=== PATIENT | female | born 1985 | race Caucasian/White ===

== ENCOUNTER 2024-10-28 12:25 | Observation (INO) ==
--- NOTE | 2024-10-28 13:00 | Emergency Department Note ---
Impression & Plan Acute cholecystitis due to biliary calculus, Abdominal pain, Vomiting ED Provider Note NAME: KHARI STILES AGE: 39 SEX: F : 1985 ARRIVES VIA: Walk-In INFORMANT: Patient ED PROVIDER(S): Adam Christopher DO CHIEF COMPLAINT: Abdominal pain HPI: Patient is a 39-year-old female who presents to the ER with a past medical history of migraine for periumbilical abdominal pain which radiates through to the back. This started late last night while she was laying in bed. Associated with nausea but no vomiting. Denies any dysuria, urgency, or frequency. Unsure of her last menstrual period as she notes her tubes have been tied and removed. Denies any headache or change in vision. No chest pain or shortness of breath. No other exacerbating or remitting factors. No other abdominal surgeries. Denies any issues with her kidneys or IV contrast. ADDITIONAL HISTORY OBTAINED: Per HPI Chronic Medical/Social Conditions Affecting Care: Per HPI PAST MEDICAL HISTORY:See Below PAST SURGICAL HISTORY:See Below FAMILY HISTORY:See Below SOCIAL HISTORY:See Below HOME MEDICATIONS:See Below ALLERGIES:See Below VITALS:See Below PHYSICAL EXAMINATION: GENERAL: Sitting up in bed, alert, moderate distress holding her abdomen EYE EXAM: normal conjunctiva. OROPHARYNX: no exudate, no erythema, lips, buccal mucosa, and tongue normal and mucous membranes are moist NECK: supple, no nuchal rigidity, no adenopathy, non-tender LUNGS: Clear to auscultation. Normal chest wall mechanics HEART: no murmurs, S1 normal and S2 normal ABDOMEN: abdomen soft, tender palpation periumbilically and in the epigastric region, normo-active bowel sounds, no masses, no rebound or guarding. UPPER EXTREMITIES: upper extremities are grossly normal. LOWER EXTREMITIES: No pitting edema. NEURO EXAM: Normal sensorium, cranial nerves II-XII grossly intact, normal speech, no gross weakness of arms, no gross weakness of legs. MEDICAL DECISION MAKING: Patient is a 39-year-old female who presents to the ER for epigastric right upper quadrant pain. IV was established and blood work was obtained. Labs show no significant leukocytosis or anemia. BMP along with LFTs bilirubin and lipase is unremarkable. UA was clean without white cells but slightly contaminated. was negative. CT abdomen pelvis showed acute cholecystitis. Patient was given IV Zosyn and IV morphine and Zofran and fluids. She was updated at bedside. Discussed with general surgery and patient was taken to the OR for acute cholecystitis. Consults/Care Managements Discussions: Per MDM Triage Nursing notes reviewed. Limited review of prior medical records performed Vital Signs: reviewed and remarkable for no significant abnormalities Differential diagnosis: Differential diagnoses includes but is not limited to gastritis, peptic ulcer disease, GERD, gallbladder disease, pancreatitis, small bowel obstruction, appendicitis, diverticulitis, hernia, urinary tract infection, torsion, /ectopic (if female), perforation, trauma, infectious. ER treatment provided: See below Diagnostics interpreted by me include EKG and cardiac monitoring as listed below: -Cardiac Monitoring: An order was placed for continuous cardiac monitoring. The monitor shows a rate of 80 with sinus rhythm. -ECG: none -Laboratory studies:Interpreted by me as stated above in MDM and shown below. 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) 2018 ASCUS 2020 Colpo LGSIL 2020 cotest neg/neg 2023 cotest neg/neg Per ASCCP guidelines repeat cotest in 3 years (2026) Sinus pain Medical History (Updated 10/28/24 @ 17:31 by Adam Christopher DO) Migraine Sterilization Menorrhagia with regular cycle resolved s/p endometrial ablation Surgical History History of bilateral tubal ligation (01/2020) History of endometrial ablation (01/2020) Status post wisdom tooth extraction H/O LEEP Family History Father Family history of diabetes mellitus Grandmother (Paternal) Family history of diabetes mellitus Other Hypertension Kidney disease No family history of adverse response to anesthesia Denies family history of Ovarian cancer Breast cancer Colorectal cancer Uterine cancer Social History Smoking Status: Former smoker Second Hand Exposure: No; Do You Dip or Chew Tobacco: No; Hx Alcohol Use: Yes Alcohol type: wine Alcohol type Comment: social Hx Substance Use: No Preferred Language: Macedonian Communication Ability: Effective Actuarial Technician Required: No Beliefs That Will Affect Care: None marital status: Current Living Situation: Alone and Family Current Living Situation Comment: with 3 children 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 Feels Safe at Home: Yes Safety Concerns: Feels Safe At This Time Diet Comment: reg diet Physical Activity Frequency: 3-4 Times per Week Physical Activity Frequency Comment: eliptical at home Assistive Devices: None Allergies Allergies Allergy/AdvReac Type Severity Reaction Status Date / Time No Known Allergies Allergy Verified 03/08/24 08:09 Home Meds Home Medications Medication Instructions Recorded Confirmed fluticasone propionate 50 1 spray intranasal DAILY 12/30/23 03/08/24 mcg/actuation nasal spray,suspension (Flonase Allergy Relief) sodium chloride 0.65 % nasal spray 1 spray intranasal BID PRN 12/30/23 03/08/24 aerosol (Saline Nasal Mist) Results & Data (ED) Vital Signs Vital Signs - 24 hr 10/28/24 12:38 10/28/24 12:55 10/28/24 13:06 Temperature 36.9 C Temperature Source Temporal Artery Scan Pulse Rate 96 H 89 Pulse Rate [Apical] 98 H Pulse Rhythm Regular Pulse Rhythm [Apical] Pulse Strength [Apical] Normal Respiratory Rate 20 18 Respiratory Effort / Characteristics Non-Labored Non-Labored Spontaneous Respiratory Depth Normal Normal Respiratory Pattern Regular Blood Pressure 187/139 H Blood Pressure [Left Arm] 178/122 H Blood Pressure Mean 155 Blood Pressure Mean [Left Arm] 140 Pulse Oximetry 92 100 100 Oxygen Delivery Method Room Air Room Air Room Air Sepsis Recent Fever Within 48 Hours No Sepsis New/Unexplained Change in Mental Status No Sepsis Action Taken by Nursing No Action Required 10/28/24 13:14 10/28/24 14:24 10/28/24 14:48 Temperature 36.9 C Temperature Source Oral Pulse Rate 92 H Pulse Rate [Apical] 89 93 H Pulse Rhythm Pulse Rhythm [Apical] Regular Regular Pulse Strength [Apical] Normal Normal Respiratory Rate 19 17 Respiratory Effort / Characteristics Non-Labored Spontaneous Non-Labored Spontaneous Respiratory Depth Normal Normal Respiratory Pattern Regular Regular Blood Pressure Blood Pressure [Left Arm] 156/98 H 161/103 H Blood Pressure Mean Blood Pressure Mean [Left Arm] 117 122 Pulse Oximetry 99 99 Oxygen Delivery Method Room Air Room Air Sepsis Recent Fever Within 48 Hours Sepsis New/Unexplained Change in Mental Status Sepsis Action Taken by Nursing Laboratory Data 10/28/24 12:50 10/28/24 12:50 Lab Results 10/28/24 10/28/24 Range/Units 12:50 14:29 WBC 9.47 (4.8-10.8) K/ul RBC 4.71 (4.20-5.40) M/uL Hgb 15.2 (12.0-16.0) g/dl Hct 41.6 (37.0-47.0) % MCV 88.3 (80.0-100.0) fL MCH 32.3 (25.0-34.0) pg MCHC 36.5 H (32.0-36.0) g/dL RDW Std Deviation 35.9 L (36.4-46.3) fL RDW Coeff of Blaise 11.1 L (11.5-14.5) % Plt Count 240 (130-400) K/uL MPV 9.3 L (9.4-12.4) fL Immature Gran % (Auto) 0.4 % Neut % (Auto) 74.0 % Lymph % (Auto) 17.7 % [place] % (Auto) 6.5 % Eos % (Auto) 1.1 % Baso % (Auto) 0.3 % Neut # (Auto) 7.00 H (1.40-6.50) K/uL Lymph # (Auto) 1.68 (1.20-3.40) K/uL [place] # (Auto) 0.62 H (0.11-0.59) K/uL Eos # (Auto) 0.10 (0.00-0.50) K/uL Baso # (Auto) 0.03 (0.00-0.20) K/uL Immature Gran # (Auto) 0.04 (0.01-0.20) K/uL Sodium 136 (136-145) mmol/L Potassium 3.8 (3.5-5.1) mmol/L Chloride 104 (98-107) mmol/L Carbon Dioxide 22 (21-32) mmol/L Anion Gap 10 (3-11) BUN 14 (6-23) mg/dl Creatinine 0.84 (0.6-1.2) mg/dl Est Cr Clr Drug Dosing 93.0 ml/min eGFR 90.03 BUN/Creatinine Ratio 16.7 (10-20) Glucose 107 H (70-99(Fasting)) mg/dl Calcium 9.7 (8.6-10.3) mg/dl Total Bilirubin 0.5 (0.2-1.0) mg/dl AST 18 (13-39) U/L ALT 20 (7-52) U/L Alkaline Phosphatase 64 (34-104) U/L Total Protein 7.7 (6.0-8.3) gm/dl Albumin 4.8 (3.4-5.0) gm/dl Globulin 2.9 (2.5-4.0) gm/dl Albumin/Globulin Ratio 1.7 (0.9-2) Lipase 24 (11-82) U/L POC Ur Test NEG (NEG) Administered Medications Discontinued Medications Sodium Chloride (Nss) 1,000 mls @ 999 mls/hr IV .Q1H1M ONE Stop: 10/28/24 13:57 Last Infusion: 10/28/24 14:55 Dose: Infused Documented By: Admin: 10/28/24 13:02 Dose: 999 mls/hr Documented By: ISAURA Piperacillin Sod/Tazobactam Sod (Zosyn) 4.5 gm in 100 mls @ 200 mls/hr IV NOW ONE; Protocol Stop: 10/28/24 14:56 Last Infusion: 10/28/24 15:33 Dose: Infused Documented By: Admin: 10/28/24 14:45 Dose: 200 mls/hr Documented By: ISAURA Ioversol (Optiray 320 100ml) 94 ml IV ONCE ONE Stop: 10/28/24 13:28 Last Admin: 10/28/24 13:28 Dose: 94 ml Documented By: NATE Ketorolac Tromethamine (Ketorolac Tromethamine 15 Mg/Ml Vial) 10 mg IV NOW ONE Stop: 10/28/24 12:58 Last Admin: 10/28/24 13:02 Dose: 10 mg Documented By: ISAURA Morphine Sulfate (Morphine Sulfate 10 Mg/Ml Carp/Vial) 6 mg IV NOW STA Stop: 10/28/24 12:58 Last Admin: 10/28/24 13:05 Dose: 6 mg Documented By: ISAURA Ondansetron HCl (Ondansetron Inj 2 Mg/Ml 2 Ml Vial) 4 mg IV NOW STA Stop: 10/28/24 12:58 Last Admin: 10/28/24 13:03 Dose: 4 mg Documented By: ISAURA Imaging Data Radiologist's Impression: Abdomen/Pelvis CT 10/28/24 12:57 CT OF THE ABDOMEN AND PELVIS WITH CONTRAST CLINICAL HISTORY: Periumbilical abdominal pain. COMPARISON STUDY: Pelvic ultrasound October 25, 2019. TECHNIQUE: Following IV administration of 94 mL of Optiray, axial images of the abdomen and pelvis were obtained from the lung bases to the proximal femurs. Images were reviewed in the axial, sagittal, and coronal planes. IV contrast was administered without complication. Automated exposure control was utilized for the study. A dose lowering technique was utilized adhering to the principles of ALARA. CT DOSE: 1224.53 mGy.cm FINDINGS: Lung bases are unremarkable. No pneumatosis, free air or portal venous gas is present. There is no biliary ductal dilatation. There are no hepatic lesions. The gallbladder is mildly distended. Multiple gallstones within the gallbladder are present. There is mild gallbladder wall thickening. There is a stone within the gallbladder neck or cystic duct which measures 3 mm. Spleen, adrenal glands and kidneys are unremarkable. There is excreted contrast within the collecting systems. There is no hydronephrosis. The appendix is normal. There is no ascites. No lymphadenopathy is present. The ovaries are not enlarged. Major vasculature is patent. IMPRESSION: 1. Cholelithiasis with mild gallbladder distention and gallbladder wall thickening. Small stone within the gallbladder neck versus cystic duct. Acute cholecystitis cannot be excluded. Right upper quadrant ultrasound is recommended. 2. Normal appendix. No bowel obstruction. No bowel wall thickening. ACT 112: Negative or not required by law. Electronically signed by: Doug Acevedo M.D. 10/28/2024 2:02 PM Discharge Plan Visit Data Chief Complaint: Abdominal Pain Stated Complaint: HARMS AND HANDS NUMB, ABD PAIN ED Provider: Adam Christopher Discharge Problem: Acute cholecystitis due to biliary calculus, Abdominal pain, Vomiting Patient Disposition: Admitted As Inpatient Discharge Instructions Interventions: ED Discharge Assessment Last Done: 10/28/24 16:17 Discharge Problem: Abdominal pain Qualifiers: Abdominal location: unspecified location Qualified Code(s): R10.9 - Unspecified abdominal pain Vomiting Qualifiers: Vomiting type: unspecified Nausea presence: unspecified Qualified Code(s): R 11.10 - Vomiting, unspecified
[2024-10-28] MEDS: SODIUM CHLORIDE 0.9% 1,000 ML IV ONE (13:02)
[2024-10-28] MEDS: KETOROLAC TROMETHAMINE 15 MG/ML VIAL IV ONE (13:02)
[2024-10-28] MEDS: ONDANSETRON INJ 2 MG/ML 2 ML VIAL IV STA (13:03)
[2024-10-28] MEDS: MoRPHine SULFATE 10 MG/ML CARP/VIAL IV STA (13:05)
[2024-10-28 13:22] LABS: Basophils # (auto) 0.03 K/uL (0.00-0.20); Basophils % (auto) 0.3 %; Eosinophils % (auto) 1.1 %; Hematocrit (blood only) 41.6 % (37.0-47.0); Hemoglobin 15.2 g/dl (12.0-16.0); Immature Granulocytes # (auto) 0.04 K/uL (0.01-0.20); Immature Granulocytes % (auto) 0.4 %; Lymphocytes # (auto) 1.68 K/uL (1.20-3.40); Lymphocytes % (auto) 17.7 %; Mean Corpuscular Hemoglobin 32.3 pg (25.0-34.0); Mean Corpuscular Hgb Conc 36.5 g/dL (32.0-36.0); Mean Corpuscular Volume 88.3 fL (80.0-100.0); Mean Platelet Volume 9.3 fL (9.4-12.4); Monocytes # (auto) 0.62 K/uL (0.11-0.59); Monocytes % (auto) 6.5 %; Platelet Count 240 K/uL (130-400); RDW Coefficient of Variation 11.1 % (11.5-14.5); RDW Standard Deviation 35.9 fL (36.4-46.3); Red Blood Count 4.71 M/uL (4.20-5.40); White Blood Count 9.47 K/ul (4.8-10.8)
[2024-10-28] MEDS: OPTIRAY 320 100ml IV ONE (13:28)
[2024-10-28 13:34] LABS: Albumin Globulin Ratio 1.7 (0.9-2); Albumin Level 4.8 gm/dl (3.4-5.0); BUN Creatinine Ratio 16.7 (10-20); Bilirubin,Total 0.5 mg/dl (0.2-1.0); Calcium 9.7 mg/dl (8.6-10.3); Globulin 2.9 gm/dl (2.5-4.0); Potassium 3.8 mmol/L (3.5-5.1); Total Protein 7.7 gm/dl (6.0-8.3)
--- NOTE | 2024-10-28 14:04 | CT Scan Report ---
CT OF THE ABDOMEN AND PELVIS WITH CONTRAST CLINICAL HISTORY: Periumbilical abdominal pain. COMPARISON STUDY: Pelvic ultrasound October 25, 2019. TECHNIQUE: Following IV administration of 94 mL of Optiray, axial images of the abdomen and pelvis we re obtained from the lung bases to the proximal femurs. Images were reviewed in the axial, sagittal, and coronal planes. IV contrast was administered without complication. Automated exposure control wa s utilized for the study. A dose lowering technique was utilized adhering to the principles of ALARA . CT DOSE: 1224.53 mGy.cm FINDINGS: Lung bases are unremarkable. No pneumatosis, free air or portal venous gas is present. Ther e is no biliary ductal dilatation. There are no hepatic lesions. The gallbladder is mildly distended. Multiple gallstones within the gallbladder are present. There is mild gallbladder wall thickening. T here is a stone within the gallbladder neck or cystic duct which measures 3 mm. Spleen, adrenal gland s and kidneys are unremarkable. There is excreted contrast within the collecting systems. There is no hydronephrosis. The appendix is normal. There is no ascites. No lymphadenopathy is present. The ovar ies are not enlarged. Major vasculature is patent. IMPRESSION: 1. Cholelithiasis with mild gallbladder distention and gallbladder wall thickening. Small stone withi n the gallbladder neck versus cystic duct. Acute cholecystitis cannot be excluded. Right upper quadra nt ultrasound is recommended. 2. Normal appendix. No bowel obstruction. No bowel wall thickening. ACT 112: Negative or not required by law. Electronically signed by: Doug Acevedo M.D. 10/28/2024 2:02 PM
[2024-10-28] MEDS: PIPERACILLIN/TAZOBACTAM 4.5 GM/100 ML BAG IV ONE (14:45)
[2024-10-28 14:49] LABS: Appearance Urine Clear (Clear); Bacteria Urine Automated 3+ (None Seen); Bilirubin Urine Negative (Negative); Blood Urine Trace (Negative); Cast Urine Automated 0-2 /lpf (0-2); Color Urine Yellow; Glucose Urine UA Negative (Negative); Ketones Urine Negative (Negative); Leukocyte Esterase Urine Negative (Negative); Nitrite Urine Negative (Negative); Protein Urine Negative (Negative); Specific Gravity Urine 1.024 (1.000-1.030); Urobilinogen Urine Negative (Negative); WBC Urine Automated 0-5 /hpf (0-5)
--- NOTE | 2024-10-28 14:50 | Anesthesiology Consultation ---
Date of Service October 28, 2024 Assessment & Plan (1) Encounter for pre-operative examination: Chart Review Chart Review: Acceptable Risk for Surgery (when NPO) History Height/Weight Height: 5 ft 9 in Weight: 71.3 kg Allergies Allergy/AdvReac Type Severity Reaction Status Date / Time No Known Allergies Allergy Verified 03/08/24 08:09 Medications Active Medications Generic Name Dose Route Start Last Admin Trade Name Freq PRN Reason Stop Dose Admin Piperacillin Sod/Tazobactam Sod 4.5 gm in 100 mls @ 200 mls/hr 10/28/24 14:27 10/28/24 14:45 Zosyn IV 10/28/24 14:56 200 mls/hr NOW ONE Administration Protocol Past Medical History Medical History (Updated 10/28/24 @ 14:48 by Akira Rodriguez MD) Migraine Sterilization Menorrhagia with regular cycle resolved s/p endometrial ablation Past Family History Family History Father Family history of diabetes mellitus Grandmother (Paternal) Family history of diabetes mellitus Other Hypertension Kidney disease No family history of adverse response to anesthesia Denies family history of Ovarian cancer Breast cancer Colorectal cancer Uterine cancer Past Surgical History Surgical History History of bilateral tubal ligation (01/2020) History of endometrial ablation (01/2020) Status post wisdom tooth extraction H/O LEEP Social History Smoking Status: Never smoker Do You Dip or Chew Tobacco: No Hx Alcohol Use: Yes Alcohol type: wine alcohol intake frequency: a few times a week Hx Substance Use: No substance use type: does not use Physical Exam Vital Signs Last Vital Signs Temp 36.9 C 10/28/24 14:48 Pulse 93 H 10/28/24 14:48 Resp 17 10/28/24 14:48 BP 161/103 H 10/28/24 14:48 Pulse Ox 99 10/28/24 14:48 O2 Del Method Room Air 10/28/24 14:48 Testing Laboratory Results 10/28/24 12:50 10/28/24 12:50 10/28/24 14:29 POC Ur Test NEG
[2024-10-28] MEDS ORDERED: MoRPHine SULFATE 2 MG/ML CARP IV PRN (15:14)
--- NOTE | 2024-10-28 15:24 | History & Physical Report ---
Date of Service October 28, 2024 Assessment & Plan (1) Acute cholecystitis due to biliary calculus: Plan: took in po today NPO IV abx IVF will need lap jen in AM will check US History of Present Illness Primary Care Provider: Kerrie Francisco This is a 39YO female with acute cholecystitis who took in po recently. She came to ED with abdominal pain which radiates through to the back. She has associated nausea but no vomiting. She denies fevers, chills, dysuria or bowel habit changes. A CT scan shows acute cholecystitis with stone in neck and no signs of CBD stones. 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) 2018 ASCUS 2020 Colpo LGSIL 2020 cotest neg/neg 2023 cotest neg/neg Per ASCCP guidelines repeat cotest in 3 years (2026) Sinus pain Medical History (Updated 10/28/24 @ 15:25 by Rafa Davis MD) Migraine Sterilization Menorrhagia with regular cycle resolved s/p endometrial ablation Surgical History History of bilateral tubal ligation (01/2020) History of endometrial ablation (01/2020) Status post wisdom tooth extraction H/O LEEP Family History Father Family history of diabetes mellitus Grandmother (Paternal) Family history of diabetes mellitus Other Hypertension Kidney disease No family history of adverse response to anesthesia Denies family history of Ovarian cancer Breast cancer Colorectal cancer Uterine cancer Social History Smoking Status: Never smoker Second Hand Exposure: No; Do You Dip or Chew Tobacco: No; Hx Alcohol Use: Yes Alcohol type: wine Alcohol type Comment: social Hx Substance Use: No Preferred Language: Serbian Communication Ability: Effective Balling Head Tender Required: No Beliefs That Will Affect Care: None marital status: Current Living Situation: Alone Current Living Situation Comment: with 3 children 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 Safe at Home: Yes Diet Comment: reg diet Physical Activity Frequency: 3-4 Times per Week Physical Activity Frequency Comment: eliptical at home Assistive Devices: None Review of Systems + anorexia; no fever and no chills no problem reported no problem reported no cough and no dyspnea no chest pain + abdominal pain and + nausea; no vomiting and no change in bowel habits no dysuria + back pain; no neck pain no problem reported no localized weakness and no generalized weakness no behavioral changes no problem reported no problem reported Physical Exam Constitutional: WD/WN, vitals as above Eyes: PERRL, conjunctivae normal, anicteric sclerae ENMT: external ear and nose normal, oropharynx normal Neck: trachea midline Respiratory: normal respiratory effort, lungs clear to auscultation Cardiovascular: RRR, no murmur, no edema Gastrointestinal (Abdomen): Inspection/Auscultation: abdomen normal to inspection and normal bowel sounds; abdomen not distended Percussion/Palpation: + abdomen tender and abdomen soft; no guarding and abdomen not rigid Musculoskeletal: Head/Neck/Chest: normocephalic and head atraumatic Skin: no rashes, warm and dry Results & Data Vital Signs (Past 12 Hours) Vital Signs Temp Pulse Pulse Resp BP BP Pulse Ox 10/28/24 14:48 36.9 C 93 H 17 161/103 H 99 10/28/24 14:24 89 19 156/98 H 99 10/28/24 13:14 92 H 10/28/24 13:06 98 H 18 178/122 H 100 10/28/24 12:55 89 100 10/28/24 12:38 36.9 C 96 H 20 187/139 H 92 O2 Del Method 10/28/24 14:48 Room Air 10/28/24 14:24 Room Air 10/28/24 13:14 10/28/24 13:06 Room Air 10/28/24 12:55 Room Air 10/28/24 12:38 Room Air Diagnostic Findings CT OF THE ABDOMEN AND PELVIS WITH CONTRAST CLINICAL HISTORY: Periumbilical abdominal pain. COMPARISON STUDY: Pelvic ultrasound October 25, 2019. TECHNIQUE: Following IV administration of 94 mL of Optiray, axial images of the abdomen and pelvis were obtained from the lung bases to the proximal femurs. Images were reviewed in the axial, sagittal, and coronal planes. IV contrast was administered without complication. Automated exposure control was utilized for the study. A dose lowering technique was utilized adhering to the principles of ALARA. CT DOSE: 1224.53 mGy.cm FINDINGS: Lung bases are unremarkable. No pneumatosis, free air or portal venous gas is present. There is no biliary ductal dilatation. There are no hepatic lesions. The gallbladder is mildly distended. Multiple gallstones within the gallbladder are present. There is mild gallbladder wall thickening. There is a stone within the gallbladder neck or cystic duct which measures 3 mm. Spleen, adrenal glands and kidneys are unremarkable. There is excreted contrast within the collecting systems. There is no hydronephrosis. The appendix is normal. There is no ascites. No lymphadenopathy is present. The ovaries are not enl arged. Major vasculature is patent. IMPRESSION: 1. Cholelithiasis with mild gallbladder distention and gallbladder wall thickening. Small stone within the gallbladder neck versus cystic duct. Acute cholecystitis cannot be excluded. Right upper quadrant ultrasound is recommended. Code Status & VTE Plan VTE Prophylaxis Plan VTE Prophylaxis will be ordered: Yes
[2024-10-28] MEDS: SODIUM CHLORIDE 0.9% 500 ML IV SCH (17:58)
[2024-10-28] MEDS: PIPERACILLIN/TAZOBACTAM 4.5 GM/100 ML BAG IV SCH (19:27)
--- NOTE | 2024-10-28 21:28 | Ultrasound Report ---
Exam(s): US GALLBLADDER EXAM: US Abdomen Limited, Gallbladder CLINICAL HISTORY: Reason for exam: Cholecystitis. TECHNIQUE: Real-time ultrasound of the right upper quadrant with image documentation. COMPARISON: No relevant prior studies available. FINDINGS: Liver: Liver measures 14 cm. Gallbladder: Cholelithiasis and gallbladder distention. Stones suggested within the cystic duct. Gallbladder wall thickness is borderline at 3 mm. Sonographic Dugan sign reported as negative. Common bile duct: No biliary dilatation. CBD measures 6 mm, upper limits of normal. Pancreas: Pancreas suboptimally characterized. Right kidney: Unremarkable. Right kidney measures 11.4 cm. No hydronephrosis. IMPRESSION: Cholelithiasis and gallbladder distention. Stones suggested within the cystic duct. Gallbladder wall thickness is borderline at 3 mm. Sonographic Dugan sign reported as negative. Appearance is equivocal for cholecystitis and clinical correlation requested. Electronically signed by: Shayan Warren M.D. 10/28/24 21:28 PM
[2024-10-29] MEDS: MoRPHine SULFATE 4 MG/ML 1 ML CARP\\VIAL IV PRN (03:23)
[2024-10-29] MEDS: ONDANSETRON INJ 2 MG/ML 2 ML VIAL IV PRN ×2 (03:23→17:48)
[2024-10-29] MEDS ORDERED: Nursing to Pharmacy Communication SCH (15:00)
[2024-10-29] MEDS ORDERED: ROCURONIUM BROMIDE 10 MG/ML 5 ML VIAL IV ONE ×2 (15:17→17:13)
--- NOTE | 2024-10-29 15:37 | History & Physical Bridge Note ---
Date of Service October 29, 2024 History & Physical Bridge Note I have examined the patient, reviewed the History & Physical and in the interval since the performance of the History & Physical I have noted the following changes of clinical significance: no changes noted. Patient planned for a robotic cholecystectomy today. The consent has been obtained.
[2024-10-29] MEDS ORDERED: ATROPINE SULFATE 0.1 MG/ML 10ML SYR IV PRN (15:42)
[2024-10-29] MEDS ORDERED: MEPERIDINE HCL 25 MG/ML CARP/VIAL IV PRN (15:42)
[2024-10-29] MEDS ORDERED: ePHEDrine sulfate 50 MG/ML AMP IV PRN (15:42)
[2024-10-29] MEDS ORDERED: MoRPHine SULFATE 10 MG/ML CARP/VIAL IV PRN (15:42)
[2024-10-29] MEDS ORDERED: MIDAZOLAM HCL 1 MG/ML 2ML VIAL ONE (15:48)
[2024-10-29] MEDS ORDERED: fentaNYL citrate PF 100 MCG/2 ML VIAL ONE (15:48)
[2024-10-29] MEDS ORDERED: PROPOFOL IV EMULSION 10 MG/ML 20 ML VIAL IV ONE (15:48)
[2024-10-29] MEDS ORDERED: DEXAMETHASONE SOD INJ 4 MG/ML VIAL ONE (15:48)
[2024-10-29] MEDS ORDERED: GLYCOPYRROLATE 0.2 MG/ML VIAL ONE (15:48)
[2024-10-29] MEDS ORDERED: NEOSTIGMINE METHYLSULFATE 1 MG/ML 10ML VIAL ONE (15:48)
[2024-10-29] MEDS ORDERED: ONDANSETRON INJ 2 MG/ML 2 ML VIAL ONE (15:48)
[2024-10-29] MEDS ORDERED: LIDOCAINE 2% 2 ML VIAL/AMP(20MG/ML) INFIL ONE (15:48)
[2024-10-29] MEDS: INDOCYANINE GREEN 25 MG VIAL INJ ONE (15:55)
[2024-10-29] MEDS: LR 15ML/HR IV SCH (15:56)
[2024-10-29] MEDS ORDERED: METOPROLOL TARTRATE 1 MG/ML VIAL IV ONE (16:32)
[2024-10-29] MEDS ORDERED: LABETALOL HCL IV 5 MG/ML 20ML IV ONE (16:46)
[2024-10-29] MEDS: BUPIVACAINE 0.5 % 5 MG/1 ML MPF 30ML VIAL ONE (17:25)
--- NOTE | 2024-10-29 17:47 | Operative Report ---
PG Post Operative Report Pre & Post Diagnosis Operation Date: 10/29/24 11:05 Pre-Op Diagnosis: Acute cholecystitis due to biliary calculus Post-Op Diagnosis: Acute cholecystitis due to biliary calculus I identified the patient and participated in the time-out.: Yes Procedure Operation Date: 10/29/24 11:05 Actual Procedures p Robotic Laparoscopic Cholecystectomy - Opal Daly DO Surgeon Opal Daly DO Geriatric Assistant AMADA Duran Estimated Blood Loss 20 Findings See Below Specimens Gallbladder Anesthesia Type General Complications None Indications Acute cholecystitis Description of Procedure The patient was brought back to the operating room and placed on the operating room table in supine position. She was connected to cardiac and oxygen monitoring, supplemental O2 was provided and SCDs were applied to bilateral lower extremities. The patient was administered general anesthesia secure airway was established. The abdomen was prepped and draped in typical sterile fashion and a timeout was conducted. Local anesthetic was used anesthetize the skin and subcutaneous tissues at all incision sites before incisions were made. All incisions were made with a 15 blade. Intra-abdominal access was gained and incision at the supraumbilical fold. Intra-abdominal access was confirmed using saline drop test. CO2 insufflation was initiated and pneumoperitoneum was established local pressure 15 mmHg. Once this pressure was reached, a 5 mm laparoscope and Optiview 8 mm trocar was inserted into the abdomen using direct visualization. 2 additional 8 mm trocars were inserted at the right and left upper quadrants. A 5 mm marketing assistant manager port was inserted at the far right upper quadrant all using direct visualization. The gallbladder was identified distended and thickened appearing at the right upper quadrant. The OR table was positioned in reverse Trendelenburg and left side down. The robot was deployed, docked, targeted and instruments were inserted. At the console, the gallbladder was retracted superiorly for the marketing assistant manager to grasp the gallbladder at the fundus and further retract and superior fashion. The infundibulum was retracted inferior laterally. The cystic triangle was dissected to expose the critical view. There were heavy adhesion apparent over the cystic artery. These were ligated with 2 hemoclips proximally and 1 distally. This tissue was able to be transected. The cystic duct was exposed. 2 Hem-o-huang clips were applied to this distally as well as the cystic duct. 1 Hem-o-huang clip proximal structure. Each structure was transected using energy with the hook. The gallbladder was gently cauterized in the liver bed. There was a posterior branch that it bled briskly. Pressure was held on this as a clip was loaded and applied to the vessel which immediately controlled the bleeding. An additional Hem-o-huang clip was applied to this vessel. The gallbladder was further dissected off the liver bed using cautery. The accompanying vein to this branch round laterally up the side of the gallbladder. This was also controlled with the Hem-o-huang clip and then transected with cautery. The gallbladder was completely removed from the liver bed. The gallbladder was then placed in an Endo Catch bag and removed from the abdomen. The liver bed was inspected for hemostasis. There was no bleeding. Blood from the area was suctioned away completely. The instruments were removed, the robot was undocked and cleared from the patient. CO2 insufflation was discontinued and excess pneumoperitoneum was evacuated from the abdomen. The OR table was returned to the neutral position. All 4 incisions were approximated using 4-0 Vicryl suture. The abdomen was wiped clean with a saline soaked lap pad and dried. The incisions were all sealed with Dermabond. The patient was awakened from anesthesia, the secure airway was removed and patient was transferred recovery in stable condition. The patient tolerated the procedure well. I attest to the content of the Intraoperative Record and any orders documented therein. Any exceptions are noted below.
[2024-10-29] MEDS: fentaNYL citrate PF 100 MCG/2 ML VIAL IV PRN (17:49)
--- NOTE | 2024-10-29 18:08 | Anesthesiology Progress Note ---
Date of Service October 29, 2024 Anesthesia Post Procedure Vital Signs Vital Signs: Temp Pulse Pulse Resp BP Pulse Ox O2 Del Method 10/29/24 18:00 78 12 148/100 H 95 Oxymask 10/29/24 17:50 84 11 L 148/105 H 96 Oxymask 10/29/24 17:43 36.4 C L 95 H 14 156/113 H 98 Oxymask 10/29/24 15:15 37.4 C 80 18 160/101 H 97 Room Air 10/29/24 14:14 36.6 C 72 16 118/82 98 Room Air 10/29/24 07:08 36.6 C 74 16 124/80 98 Room Air 10/28/24 20:02 36.7 C 81 14 136/92 97 Room Air O2 Flow Rate 10/29/24 18:00 4 10/29/24 17:50 6 10/29/24 17:43 10 10/29/24 15:15 10/29/24 14:14 10/29/24 07:08 10/28/24 20:02 Pain Intensity Abdomen: Pain Intensity: 4 Transfer of Care Handoff Completed per policy Notes Mental Status: alert / awake / arousable and participated in evaluation Patient Amnestic to Procedure: Yes Nausea / Vomiting: adequately controlled Pain: adequately controlled Airway Patency, RR, SpO2: stable & adequate BP & HR: stable & adequate Hydration State: stable & adequate Anesthetic Complications: no major complications apparent and Pt Satisfied with anesthetic care
[2024-10-29] MEDS ORDERED: ACETAMINOPHEN 325 MG TAB PO PRN (18:25)
[2024-10-29] MEDS: oxyCODONE HCL IR 5 MG TAB (IMMEDIATE RELEASE) PO PRN (20:34)
[2024-10-30] MEDS: oxyCODONE HCL IR 5 MG TAB (IMMEDIATE RELEASE) PO PRN (05:42)
[2024-10-30 07:12] VITALS: BP 143/83; RESP 16; TEMP 97.9; O2SAT 96
--- NOTE | 2024-10-30 07:38 | Surgery Progress Note ---
Date of Service October 30, 2024 Assessment & Plan (1) Acute cholecystitis due to biliary calculus: Plan: POD#1 robotic cholecystectomy Vitals stable Tolerating diet pain and nausea are controlled incisions c/d/i she is deemed stable for discharge to home today d/c instructions reviewed f/u in the office with dr. ruiz in 2 weeks Admission and Anticipated Discharge Date Admission Date: October 28, 2024 Subjective Patient is feeling well. Wanted to spend the night for pain control and was unable to warp picker her pain meds from pharmacy last evening. This AM she is feeling better, pain controlled, and denies nausea. She is tolerating a diet. Physical Exam Physical Exam: awake, alert, no distress Respiratory: normal respiratory effort Gastrointestinal (Abdomen): Inspection/Auscultation: + abdominal surgical incision (c/d/i with skin glue, no signs of infection); abdomen not distended Percussion/Palpation: abdomen soft; abdomen nontender Results & Data Vital Signs (Past 12 Hours) Vital Signs Temp Pulse Resp BP Pulse Ox O2 Del Method 10/30/24 07:10 97.9 F 88 16 143/83 H 96 Room Air 10/30/24 03:00 98.2 F 83 18 125/79 97 Room Air 10/29/24 23:00 99.0 F 93 H 18 135/89 96 Room Air 10/29/24 20:31 98.1 F 92 H 16 154/103 H 99 Room Air PG Care Time/CCT Total # of Minutes Spent Total Time Spent with Patient: Total time spent is greater than 50% in coordination of care (as documented) at patient's floor/unit and/or counseling patient: Coding Level of Care Code 35515 Post Operative Follow-Up Diagnoses Acute cholecystitis due to biliary calculus K80.00
[2024-10-30 08:50] VITALS: PULSE 84
--- NOTE | 2024-11-01 16:29 | Discharge Summary ---
Date of Service October 30, 2024 Admission HPI Per Admitting Provider This is a 39YO female with acute cholecystitis who took in po recently. She came to ED with abdominal pain which radiates through to the back. She has associated nausea but no vomiting. She denies fevers, chills, dysuria or bowel habit changes. A CT scan shows acute cholecystitis with stone in neck and no signs of CBD stones. Principal Diagnosis acute cholecystitis Discharge Exam awake, alert, no distress Respiratory normal respiratory effort Gastrointestinal (Abdomen) Inspection/Auscultation: + abdominal surgical incision (c/d/i with skin glue, no signs of infection); abdomen not distended Percussion/Palpation: abdomen soft; abdomen nontender Discharge Data Allergies Allergy/AdvReac Type Severity Reaction Status Date / Time No Known Allergies Allergy Verified 10/29/24 15:25 Consultations 10/28/24 14:27 ED Decision to Admit Stat Procedures Performed Operation Date: 10/29/24 11:05 Actual Procedures p Robotic Laparoscopic Cholecystectomy - Opal Daly, Ordered Studies 10/28/24 12:57 CT Abd and Pelvis [CT abd pelvis IV con only] Stat 10/28/24 18:49 US gallbladder Routine Hospital Course (1) Acute cholecystitis due to biliary calculus: This is a 39y F who presented to the [facility] ED on 10/28/24 with complaints of abdominal pain. workup in the ER showed concern for acute cholecystitis. the patient ate food earlier in the day therefore she was admitted under the general surgery service and was made NPO at midnight with IV abx. On 12/ she underwent a robotic cholecystectomy with dr. daly. the patient tolerated the procedure well, see op note for full details. She recovered in the PACU and was transferred back to the floor in stable condition. Her diet was advanced as tolerated and pain was managed on prn medications. On POD#1 the patient was feeling well, diet tolerated, pain controlled, no nausea. Incisison c/d/i. She was deemed stable for discharge to home with plans to follow up in the office with dr. daly in 2 weeks. Total Time Total Time Spent Total Time Spent (In Minutes): 15 Discharge Plan Discharge Items Patient Disposition: Home - Self-Care Reason For Visit: CHOLECYSTITIS Discharge Diagnosis: robotic cholecystectomy Activity: Per Instructions section Lifting: No more than 10 pounds Bathing Comment: march shower 10/30/24; no soaking in tubs/pools x 2 weeks Exercise/Sports: Wait until after follow-up appointment Driving/Machine Use: no driving while on narcotic for pain Non-emergency contact: Surgeon Call non-emergency contact if: you have any medication questions, your symptoms worsen, your pain is not controlled, your pain is worsening, you have a fever, your temperature is above 101.5, your wound has increased redness, your wound has increased drainage and your wound pain has increased Follow-up/Referrals: Kerrie Singh [Primary Care Provider] - Opal Daly, [Physician] - 11/13/24 8:30 am ( follow up in clinic within 2 weeks) Diet: Regular Addtl Attending Provider Instructions: You have skin glue over your incisions called dermabond. you may shower with this on. It will tend to dissolve and fall off within a couple weeks. Do not pick at the skin glue You may purchase Tylenol and/or Ibuprofen over the counter if needed for additional pain control over the next few days. Take per manufacturers instructions Pending Studies at Discharge: Yes Studies:: surgical pathology Stand-Alone Forms: [facility] Knight, Work/School Release, Smoking Cessation Medications and DC Order Prescriptions: New oxycodone 5 mg tablet 5 - 10 mg PO .[id number] PRN (Reason: pain, for initial therapy, max 6 tabs per day) Qty: 15 0RF Discharge Orders: Discharge Order (Routine); Ordered 10/29/24 Ordered By: Neha Condon Admission Data Admit Date/Time: 10/28/24 15:18 Attending Provider: Rafa Davis Admit Provider: Rafa Davis Primary Care Provider: Kerrie Singh Other Providers: Opal Daly Other Interventions: Discharge Summary Assessment (RN) Last Done: 10/30/24 08:49 Coding Level of Care Code 52357 IN/OBS DISCH 30 MIN/LESS Diagnoses Acute cholecystitis due to biliary calculus K80.00
== END 2024-10-30 09:16 | disposition home or self-care (01) ==
LOC: ED 12:25 → INTOOBSV 15:18 → 3E 15:18